=== PATIENT | male | born 1955 | race Hispanic/Latino ===

== ENCOUNTER 2021-12-22 05:48 | Day surgery (SDC) | payer OTHER ==
[~2021-12-22 05:48] MED LIST: SUCR500T PO
[2021-12-22] MEDS ORDERED: 0.9%NACL 1000ML 1,000 ML IV ONE (06:24)
[2021-12-22 06:30] VITALS: BP 198/58
[2021-12-22] MEDS ORDERED: LIDOCAINE HCL 1% 20 ML VIAL ONE (07:25)
[2021-12-22] MEDS ORDERED: PROPOFOL 10 MG/ML 20ML VIAL IV ONE (07:25)
[2021-12-22 08:22] VITALS: BP 195/48
[2021-12-22 08:27] VITALS: BP 210/57
[2021-12-22 08:32] VITALS: BP 193/60
[2021-12-22 08:37] VITALS: BP 192/66
[2021-12-22 08:52] VITALS: BP 195/63
== END 2021-12-22 09:00 | disposition home or self-care (01) ==
LOC: DAH 05:48 → ENDO 05:48
PROVIDERS: ATTEND Internal Medicine Gastroenterology
DX: R19.7 Diarrhea, unspecified (principal); Z20.822 Contact with and (suspected) exposure to COVID-19; K57.30 Diverticulosis of large intestine without perforation or abscess without bleeding; E11.22 Type 2 diabetes mellitus with diabetic chronic kidney disease; I12.0 Hypertensive chronic kidney disease with stage 5 chronic kidney disease or end stage renal disease; N18.6 End stage renal disease; I25.10 Atherosclerotic heart disease of native coronary artery without angina pectoris; Z86.010 Personal history of colon polyps; Z98.0 Intestinal bypass and anastomosis status; Z95.1 Presence of aortocoronary bypass graft; Z98.890 Other specified postprocedural states; Z86.73 Personal history of transient ischemic attack (TIA), and cerebral infarction without residual deficits
CPT/HCPCS: 36415; 45380; 82948 ×2; 84132; 87635; 88305; A4215 ×2; A4221; A4222; A4223; A4606; A4620; A4663; C9803; J2704; J7030

== ENCOUNTER 2022-12-26 05:51 | Emergency (ER) | payer OTHER ==
[~2022-12-26] VITALS: Ht 162.6 cm; Wt 69.4 kg
[2022-12-26 07:35] VITALS: BP 122/46
[2022-12-26] MEDS ORDERED: ACET-2079 PO (07:45)
[2022-12-26] MEDS ORDERED: HYDROCODONE/ACETAMINOPHEN 5/325 MG TAB PO ONE (08:00)
== END 2022-12-26 07:55 | disposition home or self-care (01) ==
LOC: EDH 05:51
DX: M25.562 Pain in left knee (principal); I12.0 Hypertensive chronic kidney disease with stage 5 chronic kidney disease or end stage renal disease; E11.22 Type 2 diabetes mellitus with diabetic chronic kidney disease; N18.6 End stage renal disease; Z89.512 Acquired absence of left leg below knee; Z99.2 Dependence on renal dialysis; Z95.1 Presence of aortocoronary bypass graft; Z89.511 Acquired absence of right leg below knee; Z98.890 Other specified postprocedural states
CPT/HCPCS: 73564

== ENCOUNTER → 2023-01-28 | Outpatient (CLI) | payer OTHER ==
[~2023-01-28] MED LIST changes: +ACET-2079 PO; +REGADENOSON 0.4 MG/5 ML PF SYG IVP SCH
== END | disposition home or self-care (01) ==
LOC: RAH 07:41
PROVIDERS: ATTEND Internal Medicine Cardiovascular Disease
DX: Z01.810 Encounter for preprocedural cardiovascular examination (principal); R06.09 Other forms of dyspnea; I51.7 Cardiomegaly
CPT/HCPCS: 78452; 96374; 93017; J2785; A9500 ×2